=== PATIENT | female | born 1980 | race Caucasian/White ===

== ENCOUNTER 2018-10-30 17:46 | Emergency (ER) | payer BC ==
[~2018-10-30] VITALS: Wt 78.1 kg
[2018-10-30 17:48] VITALS: BP 140/96; PULSE 104; RESP 20
--- NOTE | 2018-10-30 19:03 | ERD ---
ER Documentation Chief Complaint Chief Complaint LOWER BACK PAIN X1WEEK, URINE FREQUENCY NO DYSURIA/HEMATURIA HPI 38-year-old female who presents with low back pain for 1 week. She has urinary frequency but no dysuria hematuria. No fever. No nausea or vomiting. No trauma. No bowel or bladder incontinence. No saddle anesthesia. ROS All systems reviewed and are negative except as per history of present illness. Allergies Allergies: Coded Allergies: No Known Allergy (Unverified , 10/30/18) PMhx/Soc Medical and Surgical Hx: pt denies Surgical Hx Hx Alcohol Use: No Hx Substance Use: No Hx Tobacco Use: No Smoking Status: Never smoker FmHx Family History: No diabetes Physical Exam Vitals Vital Signs Date Temp Pulse Resp B/P (MAP) Pulse Ox O2 O2 Flow FiO2 Time Delivery Rate 10/30/18 97.7 104 20 140/96 98 17:48 (111) Physical Exam INITIAL VITAL SIGNS: Reviewed by me GENERAL: Awake, alert and oriented x 4, well appearing, nontoxic, speaking in full sentences. No acute distress HEAD: Atraumatic NECK: Supple. No masses. Full range of motion. No meningismus. No midline tenderness. RESPIRATORY: Clear to auscultation bilaterally. Symmetric chest wall rise. No wheezing or rales. No accessory muscle use. CV: Regular rate and rhythm. No murmurs, rubs, or gallops. ABDOMEN: Soft, non-distended. Nontender. Negative [place]. Negative McBurneys point tenderness. No CVA tenderness bilaterally. No guarding. No rebound. Back Exam: Compartments: Soft Motor: Normal flexion and extension of bilateral hip/knee/ankle/foot Sensation: Intact to light touch throughout Bones: No midline TTP Results 24 hrs Laboratory Tests Test 10/30/18 18:43 10/30/18 18:44 Bedside Urine pH (LAB) 7.0 Bedside Urine Protein (LAB) Negative Bedside Urine Glucose (UA) Negative Bedside Urine Ketones (LAB) Negative Bedside Urine Blood 1+ Bedside Urine Nitrite (LAB) Negative Bedside Urine Leukocyte Esterase (L Negative POC Beta HCG, Qualitative NEGATIVE Procedures/MDM Patient has back pain. She is afraid she may have a urinary tract infection but her urine is negative for infection at this time. It was sent for culture. She is not . She is ambulatory neurovascular intact. There is no trauma. Patient counseled regarding my diagnostic impression and care plan. Prior to discharge all questions answered. Pt agrees with treatment plan and understands strict return precautions. Pt is instructed to follow up with primary care provider within 24-48 hours. Precautionary instructions provided including instructions to return to the ER if not improving or for any worsening or changing symptoms or concerns. Departure Diagnosis: Primary Impression: Back pain Condition: Stable Patient Instructions: Back Pain (Acute Or Chronic) Additional Instructions: Call your primary care doctor TOMORROW for an appointment during the next 1-2 days.See the doctor sooner or return here if your condition worsens before your appointment time. RENEE ANGELES PA-C Oct 30, 2018 19:03
== END 2018-10-30 19:15 | disposition home or self-care (01) ==
LOC: FTE 17:46
DX: M54.5 Low back pain (principal); R35.0 Frequency of micturition
CPT/HCPCS: 81003; 81025; 87086; 99283